=== PATIENT | female | born 1960 | race African-American/Black ===

== ENCOUNTER 2017-11-18 14:37 | Emergency (ER) | payer OTHER ==
[~2017-11-18] VITALS: Ht 165.1 cm; Wt 56.8 kg
[~2017-11-18 14:37] MED LIST: CYCL5TAB PO; NAPR-576 PO
[2017-11-18 15:03] VITALS: BP 125/70; PULSE 75; RESP 18; TEMP 97.7; O2SAT 100
--- NOTE | 2017-11-18 16:00 | RADRPT ---
EXAM DATE/TIME: 11/18/2017 15:23 [facility] COMPARISON: No previous studies available for comparison. INDICATIONS : Right forearm pain and numbness after banging elbow on counter. MEDICAL HISTORY : None. SURGICAL HISTORY : None. ENCOUNTER: Initial ACUITY: 1 day PAIN SCORE: 7/10 LOCATION: Right posterior proximal forearm. FINDINGS: Olecranon spur is noted. There is no acute fracture or dislocation. CONCLUSION: 1. No acute fracture or dislocation. 2. Olecranon spur. Yuan Zepeda MD on November 18, 2017 at 15:55 Board Certified Radiologist. This report was verified electronically.
--- NOTE | 2017-11-18 16:01 | RADRPT ---
EXAM DATE/TIME: 11/18/2017 15:28 [facility] COMPARISON: No previous studies available for comparison. INDICATIONS : Right humerus pain and numbness after banging elbow on the counter. MEDICAL HISTORY : None. SURGICAL HISTORY : None. ENCOUNTER: Initial ACUITY: 1 day PAIN SCORE: 7/10 LOCATION: Right posterior distal humerus. FINDINGS: Two view examination of the right humerus demonstrates no evidence of fracture or dislocation. Bony mineralization is normal. The soft tissue structures are intact. CONCLUSION: No acute disease. Yuan Zepeda MD on November 18, 2017 at 15:57 Board Certified Radiologist. This report was verified electronically.
--- NOTE | 2017-11-18 16:01 | PD ---
HPI Chief Complaint: Injury Time Seen by Provider: 15:59 Travel History International Travel<30 days: No Contact w/Intl Traveler<30days: No Traveled to known affect area: No History of Present Illness HPI 57-year-old -Indian female presents emergency department with sudden onset right lateral elbow pain after hitting it while at the eye [facility] on a counter, as she was walking by and returning a clipboard with a questionnaire. She states she has pain and numbness radiating into the hand since. Pain is now 8 out of 10. Her pain is worse with movement or palpation to the lateral elbow. She denies weakness or swelling. She is allergic to acetaminophen, naproxen, and propoxyphene, but states he can take Advil. PFSH Past Medical History Diminished Hearing: No Musculoskeletal: Yes (CHRONIC NECK AND BACK PAIN) : 3 Para: 3 Miscarriage: 0 : 0 Past Surgical History Section: Yes (TIMES 3) Social History Alcohol Use: Yes (OCCASIONALLY) Tobacco Use: Yes (FOR 20 YEARS) Substance Use: No Allergies-Medications (Allergen,Severity, Reaction): Coded Allergies: naproxen (Unverified Adverse Reaction, Severe, Nausea/Vomiting, 11/18/17) acetaminophen (Unverified Adverse Reaction, Mild, N/V, 11/18/17) propoxyphene (Unverified Adverse Reaction, Mild, N/V, 11/18/17) Reported Meds & Prescriptions Reported Meds & Active Scripts Active Ibuprofen 600 Mg Tab 600 Mg PO Q6H PRN Review of Systems Except as stated in HPI: all other systems reviewed are Neg General / Constitutional: No: Fever Eyes: No: Visual changes HENT: No: Headaches Cardiovascular: No: Chest Pain or Discomfort Respiratory: No: Shortness of Breath Gastrointestinal: No: Abdominal Pain Genitourinary: No: Dysuria Musculoskeletal: Positive: Arthralgias, Limited ROM, Pain Skin: No Rash Neurologic: No: Weakness Psychiatric: No: Depression Endocrine: No: Polydipsia Hematologic/Lymphatic: No: Easy Bruising Physical Exam Narrative GENERAL: Patient appears in moderate distress per SKIN: Warm and dry. Normal color. Normal turgor HEAD: Atraumatic. Normocephalic. EYES: Pupils equal and round. No scleral icterus. No injection or drainage. ENT: No nasal bleeding or discharge. Mucous membranes pink and moist. Pharynx is clear. Airways patent NECK: Trachea midline. Supple nontender CARDIOVASCULAR: Regular rate and rhythm. RESPIRATORY: No accessory muscle use. Clear to auscultation. Breath sounds equal bilaterally. MUSCULOSKELETAL: Extremities without clubbing, cyanosis, or edema. No obvious deformities. No obvious swelling or dislocation is noted on the right elbow. Patient has pain with palpation over the right lateral epicondyle reproducing her symptoms. Patient is able to extend the elbow fully as well as supinate and pronate with minimal discomfort. Neurovascular exam is unremarkable. Liner Checker strength is normal in the right hand. NEUROLOGICAL: Awake and alert. No obvious cranial nerve deficits. Motor grossly within normal limits. Five out of 5 muscle strength in the arms and legs. Normal speech. PSYCHIATRIC: Appropriate mood and affect; insight and judgment normal. Data Data Last Documented VS Vital Signs Date Time Temp Pulse Resp B/P (MAP) Pulse Ox O2 Delivery O2 Flow Rate FiO2 11/18/17 15:03 97.7 75 18 125/70 (88) 100 Orders Orders Forearm (2vws) (11/18/17 ) Humerus (Min 2vws) (11/18/17 ) Ice/Cold Pack (11/18/17 16:08) Ibuprofen (Motrin) (11/18/17 16:15) MDM Medical Decision Making Medical Screen Exam Complete: Yes Emergency Medical Condition: Yes Differential Diagnosis Right lateral elbow pain. Contusion. Possible fracture. Narrative Course X-ray of the right elbow is obtained. X-ray shows no acute fracture or dislocation. Patient is given 800 mg ibuprofen p.o. now Patient will be continued on ibuprofen 600 mg 4 times daily #40. Patient is to ice the area as well as put heat on until better. Patient to follow-up if symptoms do not improve or worsen as needed. Diagnosis Primary Impression: Contusion of right elbow, initial encounter Patient Instructions: Contusion in Adults (GEN), General Instructions, Tennis Elbow (ED), Tennis Elbow Exercises (GEN) Additional Instructions: X-ray shows no acute fracture or dislocation. Patient is given 800 mg ibuprofen p.o. now Patient will be continued on ibuprofen 600 mg 4 times daily #40. Patient is to ice the area as well as put heat on until better. Patient to follow-up if symptoms do not improve or worsen as needed. Med/Other Pt SpecificInfo: Prescription(s) given Scripts Ibuprofen (Ibuprofen) 600 Mg Tab 600 MG PO Q6H Y for Pain/Inflammation, #40 TAB 0 Refills Prov: Corey Shaw MD 11/18/17 Disposition: 01 DISCHARGE HOME Condition: Stable Renny Lobo Nov 18, 2017 16:01
[2017-11-18] MEDS ORDERED: IBUP-232 PO (16:14)
[2017-11-18] MEDS ORDERED: IBUPROFEN 800 MG TAB PO ONE (16:15)
== END 2017-11-18 16:28 | disposition home or self-care (01) ==
LOC: NEPK 14:37
DX: S50.01XA Contusion of right elbow, initial encounter (principal); W22.09XA Striking against other stationary object, initial encounter; Y93.01 Activity, walking, marching and hiking; Y92.531 Health care provider office as the place of occurrence of the external cause
CPT/HCPCS: 73060; 73090; 99283